=== PATIENT | male | born 1950 | race Caucasian/White ===

== ENCOUNTER 2021-09-24 16:40 | Emergency (ER) | payer OTHER ==
[~2021-09-24] VITALS: Ht 165.1 cm; Wt 78.9 kg
[2021-09-24 16:40] VITALS: BP_SYST 148
[~2021-09-24 16:40] MED LIST: DOCU-144 PO; INSNPH7030 SQ; LEVO750T45 PO; LIP40 PO; LISI10TA29 PO; METF1000 PO; MOM PO; POLY17PO4 PO
--- NOTE | 2021-09-24 16:45 | NUR ---
Patient to ER bed 06 to gown for evaluation. Side rails up.
--- NOTE | 2021-09-24 16:50 | NUR ---
Pt brought by self, A&Ox4 pt presents to ER for high blood pressure, pt states he went to [facility] [place] today for eye exam and BP was high, pt denies pain, skin pink and warm, cap refill <3, BP 144/80, will cont to monitor.
--- NOTE | 2021-09-24 17:00 | NUR ---
Dr Headley evaluating patient at bedside
[2021-09-24 17:14] LABS: BASOPHILS # (AUTO) 0.1 K/uL (0.0-0.2); BASOPHILS % (AUTO) 1.5 % (0.0-2.0); EOSINOPHILS # (AUTO) 0.2 K/uL (0.0-0.4); EOSINOPHILS % (AUTO) 4.1 % (0.0-4.0); HEMOGLOBIN 13.4 g/dL (14.0-18.0); MEAN CORPUSCULAR HEMOGLOBIN 30 pg (27-31); MEAN CORPUSCULAR HGB CONC 35 % (32-36); MEAN CORPUSCULAR VOLUME 84 fL (79.0-98.0); MONOCYTES # (AUTO) 0.4 K/uL (0.0-1.0); MONOCYTES % (AUTO) 7.8 % (1.7-9.3); NEUTROPHILS # (AUTO) 2.8 K/uL (1.8-7.7); NEUTROPHILS % (AUTO) 50.6 % (40.0-70.0); PLATELET COUNT (AUTO) 133 K/uL (130-430); RED BLOOD CELL COUNT(AUTO) 4.53 MIL/uL (4.2-6.2); RED CELL DISTRIBUTION WIDTH 14.2 % (9.0-15.0); WHITE BLOOD COUNT (AUTO) 5.5 K/uL (4.8-10.8)
[2021-09-24 17:33] LABS: CALCIUM 8.9 mg/dL (8.4-11.0); CREATININE 0.88 mg/dL (0.55-1.30); POTASSIUM 4.3 mmol/L (3.5-5.1)
--- NOTE | 2021-09-24 17:35 | NUR ---
Pt off the unit for CT
[2021-09-24] MEDS ORDERED: IOHEXOL 350 mgI/mL, 150 ML INFUS..BTL IV ONE (17:36)
--- NOTE | 2021-09-24 17:50 | NUR ---
Pt returned from CT on stable condition
--- NOTE | 2021-09-24 18:10 | NUR ---
Pt A&O x4, VSS, respirations even and unlabored
--- NOTE | 2021-09-24 19:10 | NUR ---
A&Ox4, follows commands, pt states he feels fine, VSS.
--- NOTE | 2021-09-24 20:23 | NUR ---
Patient given written and verbal discharge instructions and verbalizes understanding. ER MD Headley discussed with patient the results and treatment provided. Patient in stable condition. ID arm band removed. IV catheter removed intact and dressing applied, no active bleeding. Reviewed with pt to follow up with PMD. Pain Scale at time of discharge. Opportunity for questions provided and answered. Medication side effect fact sheet provided.
[2021-09-24 20:29] VITALS: BP_SYST 146
== END 2021-09-24 20:23 | disposition home or self-care (01) ==
LOC: SED 16:40
DX: H53.8 Other visual disturbances (principal); I10 Essential (primary) hypertension; E11.9 Type 2 diabetes mellitus without complications; Z79.4 Long term (current) use of insulin; Z79.899 Other long term (current) drug therapy
CPT/HCPCS: 36415; 70450; 70496; 70498; 76376; 80048; 85025; 85651; 86140; 93005; 99284; Q9967

== ENCOUNTER 2024-05-10 17:42 | Inpatient (IN) | payer OTHER ==
[~2024-05-10] VITALS: Ht 165.1 cm; Wt 80.7 kg
[~2024-05-10 17:42] MED LIST changes: -LEVO750T45 PO; +LEVO750T64 PO
[2024-05-10 17:52] VITALS: BP_SYST 156; PULSE 93; RESP 29; TEMP 98; O2SAT 96
[2024-05-10] MEDS: FUROSEMIDE 40 MG/4 ML VIAL IVP ONE (18:39)
[2024-05-10] MEDS: NITROGLYCERIN 1 INCH (GM) OINT. TP ONE (18:39)
[2024-05-10] MEDS: MORPHINE 4 MG INJ. 4 MG/ML VIAL IVP ONE (18:40)
[2024-05-10 18:53] LABS: BASOPHILS # (AUTO) 0.1 K/uL (0.0-0.2); BASOPHILS % (AUTO) 1.3 % (0.0-2.0); EOSINOPHILS # (AUTO) 0.3 K/uL (0.0-0.4); EOSINOPHILS % (AUTO) 3.8 % (0.0-4.0); HEMATOCRIT 22.2 % (36-54); HEMOGLOBIN 8.1 g/dL (14.0-18.0); LYMPHOCYTES % (AUTO) 23.7 % (20.5-51.5); MEAN CORPUSCULAR HEMOGLOBIN 30 pg (27-31); MEAN CORPUSCULAR HGB CONC 36 % (32-36); MEAN CORPUSCULAR VOLUME 84 fL (79.0-98.0); MONOCYTES # (AUTO) 0.8 K/uL (0.0-1.0); MONOCYTES % (AUTO) 9.5 % (1.7-9.3); NEUTROPHILS # (AUTO) 5.3 K/uL (1.8-7.7); NEUTROPHILS % (AUTO) 61.7 % (40.0-70.0); PLATELET COUNT (AUTO) 178 K/uL (130-430); RED BLOOD CELL COUNT(AUTO) 2.64 MIL/uL (4.2-6.2); WHITE BLOOD COUNT (AUTO) 8.6 K/uL (4.8-10.8)
[2024-05-10 19:08] LABS: ALANINE AMINOTRANSFERASE 16 U/L (12-78); ALBUMIN 2.5 g/dL (3.4-4.8); ANION GAP 9 (5-15); ASPARTATE AMINOTRANSFERASE 27 U/L (10-37); CARBON DIOXIDE 25 mmol/L (23-29); CREATININE 2.47 mg/dL (0.55-1.30); GLUCOSE 181 mg/dL (74-106); TOTAL BILIRUBIN 0.4 mg/dL (0.0-1.0); UREA NITROGEN, BLOOD 70 mg/dL (8-21)
[2024-05-10 19:38] LABS: BILIRUBIN,DIRECT 0.1 mg/dL (0.0-0.3); CHLORIDE 104 mmol/L (98-107); SODIUM SERUM 138 mmol/L (136-145)
[2024-05-10] MEDS ORDERED: INSU100V9 SQ (19:46)
[2024-05-10] MEDS ORDERED: TAMS-11 PO (19:46)
[2024-05-10] MEDS ORDERED: GABA-529 PO (19:46)
[2024-05-10] MEDS ORDERED: ROSU40TA PO (19:46)
[2024-05-10] MEDS ORDERED: LISI10TA29 PO (19:46)
[2024-05-10] MEDS: ENOXAPARIN SODIUM 80 MG/0.8 ML SYRINGE SUBCUT ONE (20:33)
[2024-05-10 22:59] VITALS: BP_SYST 169; PULSE 88; RESP 16; TEMP 98.4; O2SAT 99
[2024-05-11] VITALS (7 sets, daily range): BP systolic 150–166; PULSE 83–89; RESP 15–16; TEMP 97.5–98.1; O2SAT 95–100
[2024-05-11] MEDS: ONDANSETRON HCL 4 MG/2 ML VIAL IVP PRN (00:40)
[2024-05-11] MEDS: FUROSEMIDE 20 MG/2 ML VIAL IVP SCH (07:40)
[2024-05-11] MEDS ORDERED: cefTRIAXone 1 GM IVPB PREMIX 50 ML IV SCH (13:45)
[2024-05-11] MEDS: CEFTRIAXONE SOD 1 GM/ D5W 50 ML IV SCH (14:40)
[2024-05-12] VITALS (7 sets, daily range): BP systolic 145–159; PULSE 82–87; RESP 16–19; TEMP 97.8–98; O2SAT 95–100
[2024-05-12 07:55] LABS: BASOPHILS # (AUTO) 0.1 K/uL (0.0-0.2); BASOPHILS % (AUTO) 0.8 % (0.0-2.0); EOSINOPHILS # (AUTO) 0.4 K/uL (0.0-0.4); EOSINOPHILS % (AUTO) 5.3 % (0.0-4.0); HEMATOCRIT 23.3 % (36-54); HEMOGLOBIN 8.1 g/dL (14.0-18.0); LYMPHOCYTES # (AUTO) 1.6 K/uL (1.0-5.5); LYMPHOCYTES % (AUTO) 19.5 % (20.5-51.5); MEAN CORPUSCULAR HEMOGLOBIN 29 pg (27-31); MEAN CORPUSCULAR HGB CONC 35 % (32-36); MEAN CORPUSCULAR VOLUME 84 fL (79.0-98.0); MONOCYTES # (AUTO) 0.8 K/uL (0.0-1.0); NEUTROPHILS # (AUTO) 5.3 K/uL (1.8-7.7); NEUTROPHILS % (AUTO) 64.4 % (40.0-70.0); PLATELET COUNT (AUTO) 220 K/uL (130-430); RED BLOOD CELL COUNT(AUTO) 2.77 MIL/uL (4.2-6.2); RED CELL DISTRIBUTION WIDTH 14.8 % (9.0-15.0); WHITE BLOOD COUNT (AUTO) 8.2 K/uL (4.8-10.8)
[2024-05-12 08:21] LABS: ANION GAP 11 (5-15); CALCIUM 8.6 mg/dL (8.4-11.0); CARBON DIOXIDE 26 mmol/L (23-29); CHLORIDE 100 mmol/L (98-107); CREATININE 2.57 mg/dL (0.55-1.30); GLUCOSE 180 mg/dL (74-106); POTASSIUM 4.6 mmol/L (3.5-5.1); SODIUM SERUM 137 mmol/L (136-145); UREA NITROGEN, BLOOD 75 mg/dL (8-21)
[2024-05-12] MEDS: AZITHROMYCIN 500 MG in NS 250 ML IV SCH (11:06)
[2024-05-12] MEDS: TAMSULOSIN HCL 0.4 MG CAP PO SCH (17:41)
[2024-05-12] MEDS: ATORVASTATIN 20 MG TABLET PO SCH (17:43)
[2024-05-12] MEDS: GABAPENTIN 100 MG CAPSULE PO PRN (17:44)
[2024-05-12] MEDS: LISINOPRIL 10 MG TABLET (PRINIVIL) PO SCH (17:45)
[2024-05-12] MEDS: INSULIN GLARGINE 100 UNITS/ML, 10 ML VIAL SQ SCH (20:57)
[2024-05-12] MEDS: FUROSEMIDE 20 MG/2 ML VIAL IVP SCH (21:00)
[2024-05-12 23:41] LABS: BILIRUBIN,URINE NEGATIVE (NEGATIVE); CLARITY/URINE CLEAR (CLEAR); COLOR,URINE YELLOW (YELLOW); GLUCOSE,URINE TRACE (NEGATIVE); KETONES,URINE NEGATIVE (NEGATIVE); LEUKOCYTE ESTERASE ,URINE NEGATIVE (NEGATIVE); NITRITE, URINE NEGATIVE (NEGATIVE); PROTEIN URINE 2+ (NEGATIVE); UROBILINOGEN,URINE 0.2 (0.2-1.0)
[2024-05-12 23:52] LABS: BLOOD, URINE TRACE (NEGATIVE)
[2024-05-13] VITALS: BP_SYST 151; PULSE 91; RESP 20; TEMP 98.1; O2SAT 100
[2024-05-13 00:16] LABS: BACTERIA,URINE RARE /HPF (None Seen)
[2024-05-13 07:27] LABS: BASOPHILS # (AUTO) 0.1 K/uL (0.0-0.2); BASOPHILS % (AUTO) 0.9 % (0.0-2.0); EOSINOPHILS # (AUTO) 0.5 K/uL (0.0-0.4); EOSINOPHILS % (AUTO) 6.5 % (0.0-4.0); HEMATOCRIT 25.4 % (36-54); HEMOGLOBIN 8.7 g/dL (14.0-18.0); LYMPHOCYTES # (AUTO) 2.2 K/uL (1.0-5.5); LYMPHOCYTES % (AUTO) 27.5 % (20.5-51.5); MEAN CORPUSCULAR HEMOGLOBIN 29 pg (27-31); MEAN CORPUSCULAR HGB CONC 34 % (32-36); MEAN CORPUSCULAR VOLUME 84 fL (79.0-98.0); MONOCYTES # (AUTO) 0.7 K/uL (0.0-1.0); MONOCYTES % (AUTO) 9.1 % (1.7-9.3); NEUTROPHILS # (AUTO) 4.5 K/uL (1.8-7.7); PLATELET COUNT (AUTO) 233 K/uL (130-430); RED BLOOD CELL COUNT(AUTO) 3.02 MIL/uL (4.2-6.2); RED CELL DISTRIBUTION WIDTH 15.1 % (9.0-15.0); WHITE BLOOD COUNT (AUTO) 8.1 K/uL (4.8-10.8)
[2024-05-13 07:34] LABS: ERYTHROCYTE SEDIMENTATION RATE 41 MM/HR (0-15)
[2024-05-13 07:41] VITALS: BP_SYST 132; PULSE 89; RESP 18; TEMP 97.5; O2SAT 96
[2024-05-13 07:46] LABS: ANION GAP 12 (5-15); CALCIUM 8.6 mg/dL (8.4-11.0); CARBON DIOXIDE 25 mmol/L (23-29); CHLORIDE 100 mmol/L (98-107); GLUCOSE 140 mg/dL (74-106); POTASSIUM 4.1 mmol/L (3.5-5.1); SODIUM SERUM 137 mmol/L (136-145); UREA NITROGEN, BLOOD 73 mg/dL (8-21)
[2024-05-13 09:30] VITALS: O2SAT 97
[2024-05-13 12:02] VITALS: BP_SYST 128; PULSE 82; RESP 18; TEMP 97.3; O2SAT 100
[2024-05-13 16:12] VITALS: BP_SYST 117; PULSE 81; RESP 18; TEMP 98; O2SAT 100
[2024-05-13 19:43] LABS: BILIRUBIN,URINE NEGATIVE (NEGATIVE); CLARITY/URINE CLEAR (CLEAR); COLOR,URINE YELLOW (YELLOW); GLUCOSE,URINE TRACE (NEGATIVE); KETONES,URINE NEGATIVE (NEGATIVE); LEUKOCYTE ESTERASE ,URINE NEGATIVE (NEGATIVE); NITRITE, URINE NEGATIVE (NEGATIVE); PH,URINE 5.5 (5.0-8.0); PROTEIN URINE 2+ (NEGATIVE); UROBILINOGEN,URINE 0.2 (0.2-1.0)
[2024-05-13 19:56] LABS: BLOOD, URINE TRACE (NEGATIVE)
[2024-05-13 19:57] LABS: BACTERIA,URINE FEW /HPF (None Seen); COARSE GRANULAR CASTS,URINE 0-10 /LPF (None Seen); FINE GRANULAR CASTS,URINE 0-10 /LPF (None Seen); MUCUS,URINE 1+ /LPF (None Seen); RBC,URINE 0-3 /HPF (0-3); WBC,URINE 0-3 /HPF (0-3)
[2024-05-13 20:00] VITALS: BP_SYST 136; PULSE 91; RESP 18; TEMP 97.6; O2SAT 100
[2024-05-14] VITALS (7 sets, daily range): BP systolic 93–136; PULSE 80–93; RESP 14–16; TEMP 97.5–98.5; O2SAT 96–100
[2024-05-14 07:45] LABS: BASOPHILS # (AUTO) 0.1 K/uL (0.0-0.2); BASOPHILS % (AUTO) 0.9 % (0.0-2.0); EOSINOPHILS # (AUTO) 0.5 K/uL (0.0-0.4); EOSINOPHILS % (AUTO) 5.4 % (0.0-4.0); HEMATOCRIT 24.3 % (36-54); HEMOGLOBIN 8.5 g/dL (14.0-18.0); LYMPHOCYTES # (AUTO) 2.2 K/uL (1.0-5.5); LYMPHOCYTES % (AUTO) 26.4 % (20.5-51.5); MEAN CORPUSCULAR HEMOGLOBIN 29 pg (27-31); MEAN CORPUSCULAR HGB CONC 35 % (32-36); MEAN CORPUSCULAR VOLUME 82 fL (79.0-98.0); MONOCYTES # (AUTO) 0.9 K/uL (0.0-1.0); MONOCYTES % (AUTO) 10.4 % (1.7-9.3); NEUTROPHILS # (AUTO) 4.8 K/uL (1.8-7.7); NEUTROPHILS % (AUTO) 56.9 % (40.0-70.0); PLATELET COUNT (AUTO) 230 K/uL (130-430); RED BLOOD CELL COUNT(AUTO) 2.96 MIL/uL (4.2-6.2); RED CELL DISTRIBUTION WIDTH 14.6 % (9.0-15.0); WHITE BLOOD COUNT (AUTO) 8.5 K/uL (4.8-10.8)
[2024-05-14 07:51] LABS: ERYTHROCYTE SEDIMENTATION RATE 38 MM/HR (0-15)
[2024-05-14 08:30] LABS: ALANINE AMINOTRANSFERASE 15 U/L (12-78); ALBUMIN 2.5 g/dL (3.4-4.8); ANION GAP 12 (5-15); ASPARTATE AMINOTRANSFERASE 18 U/L (10-37); CALCIUM 8.5 mg/dL (8.4-11.0); CARBON DIOXIDE 26 mmol/L (23-29); CHLORIDE 99 mmol/L (98-107); CREATININE 2.92 mg/dL (0.55-1.30); GLUCOSE 96 mg/dL (74-106); PHOSPHORUS 5.5 mg/dL (2.7-4.5); POTASSIUM 4.1 mmol/L (3.5-5.1); SODIUM SERUM 137 mmol/L (136-145); TOTAL BILIRUBIN 0.4 mg/dL (0.0-1.0); TOTAL PROTEIN, SERUM 7.1 g/dL (6.4-8.3); UREA NITROGEN, BLOOD 87 mg/dL (8-21)
[2024-05-14] MEDS: MILK OF MAGNESIA 30 ML UDC PO PRN (13:57)
[2024-05-15 00:10] VITALS: BP_SYST 102; PULSE 89; RESP 17; TEMP 98.7; O2SAT 99
[2024-05-15 08:05] VITALS: BP_SYST 126; PULSE 88; RESP 18; TEMP 97.5; O2SAT 95
[2024-05-15 08:22] LABS: BASOPHILS # (AUTO) 0.1 K/uL (0.0-0.2); BASOPHILS % (AUTO) 0.9 % (0.0-2.0); EOSINOPHILS # (AUTO) 0.4 K/uL (0.0-0.4); EOSINOPHILS % (AUTO) 5.5 % (0.0-4.0); HEMATOCRIT 23.4 % (36-54); HEMOGLOBIN 8.1 g/dL (14.0-18.0); LYMPHOCYTES # (AUTO) 1.8 K/uL (1.0-5.5); LYMPHOCYTES % (AUTO) 25.3 % (20.5-51.5); MEAN CORPUSCULAR HEMOGLOBIN 29 pg (27-31); MEAN CORPUSCULAR HGB CONC 35 % (32-36); MEAN CORPUSCULAR VOLUME 83 fL (79.0-98.0); MONOCYTES # (AUTO) 0.7 K/uL (0.0-1.0); MONOCYTES % (AUTO) 10.3 % (1.7-9.3); NEUTROPHILS # (AUTO) 4.1 K/uL (1.8-7.7); PLATELET COUNT (AUTO) 243 K/uL (130-430); RED BLOOD CELL COUNT(AUTO) 2.83 MIL/uL (4.2-6.2); RED CELL DISTRIBUTION WIDTH 14.5 % (9.0-15.0)
[2024-05-15 08:50] LABS: ANION GAP 7 (5-15); CALCIUM 8.6 mg/dL (8.4-11.0); CARBON DIOXIDE 28 mmol/L (23-29); CHLORIDE 102 mmol/L (98-107); CREATININE 3.07 mg/dL (0.55-1.30); GLUCOSE 89 mg/dL (74-106); POTASSIUM 3.8 mmol/L (3.5-5.1); SODIUM SERUM 137 mmol/L (136-145); UREA NITROGEN, BLOOD 81 mg/dL (8-21)
[2024-05-15] MEDS ORDERED: FURO-149 PO (10:00)
[2024-05-15] MEDS ORDERED: METO2.5T6 PO (10:00)
[2024-05-15] MEDS: metOLazone 5 MG TABLET PO SCH (10:12)
[2024-05-15] MEDS: FUROSEMIDE 20 MG/2 ML VIAL IVP SCH (10:12)
[2024-05-15 12:35] VITALS: BP_SYST 124; PULSE 75; RESP 14; TEMP 98; O2SAT 98
[2024-05-15 13:10] VITALS: BP_SYST 124; PULSE 75; RESP 14; TEMP 98; O2SAT 98
== END 2024-05-15 14:20 | disposition home or self-care (01) | DRG 871 ==
LOC: SED 17:42 → STU 20:09
PROVIDERS: ADMIT Specialist; ATTEND Specialist
DX: A41.9 Sepsis, unspecified organism (principal); I21.4 Non-ST elevation (NSTEMI) myocardial infarction; I50.33 Acute on chronic diastolic (congestive) heart failure; J18.9 Pneumonia, unspecified organism; J96.01 Acute respiratory failure with hypoxia; J69.0 Pneumonitis due to inhalation of food and vomit; I13.0 Hypertensive heart and chronic kidney disease with heart failure and stage 1 through stage 4 chronic kidney disease, or unspecified chronic kidney disease; N17.9 Acute kidney failure, unspecified; I42.9 Cardiomyopathy, unspecified; D64.9 Anemia, unspecified; G89.29 Other chronic pain; E83.39 Other disorders of phosphorus metabolism; E66.9 Obesity, unspecified; E11.65 Type 2 diabetes mellitus with hyperglycemia; E11.40 Type 2 diabetes mellitus with diabetic neuropathy, unspecified; N40.0 Benign prostatic hyperplasia without lower urinary tract symptoms; E11.22 Type 2 diabetes mellitus with diabetic chronic kidney disease; N18.32 Chronic kidney disease, stage 3b; I08.0 Rheumatic disorders of both mitral and aortic valves; Z79.899 Other long term (current) drug therapy; Z79.4 Long term (current) use of insulin; Z68.29 Body mass index [BMI] 29.0-29.9, adult
CPT/HCPCS: 36415; 71045; 76770; 80048; 80053; 80076; 81000; 81001; 81015; 82435; 82570; 82948; 83735; 83880; 84100; 84302; 84484; 84540; 85025; 85651; 87040; 87070; 87205; 93005; 93306; 99291; G0378; J0456; J0696; J1650; J1815; J1940; J2270; J2405; J7050; J7060

== ENCOUNTER 2024-06-06 17:33 | Inpatient (IN) | payer OTHER ==
[~2024-06-06] VITALS: Ht 165.1 cm; Wt 74.8 kg
[~2024-06-06 17:33] MED LIST changes: -DOCU-144 PO; +FURO-149 PO; +GABA-529 PO; -INSNPH7030 SQ; +INSU100V9 SQ; -LEVO750T64 PO; -LIP40 PO; -METF1000 PO; +METO2.5T6 PO; -MOM PO; -POLY17PO4 PO; +ROSU40TA PO; +TAMS-11 PO
[2024-06-06 17:38] VITALS: BP_SYST 122; PULSE 82; RESP 16; TEMP 97.6; O2SAT 99
[2024-06-06 18:14] LABS: BASOPHILS # (AUTO) 0.1 K/uL (0.0-0.2); BASOPHILS % (AUTO) 0.7 % (0.0-2.0); EOSINOPHILS # (AUTO) 0.5 K/uL (0.0-0.4); EOSINOPHILS % (AUTO) 5.8 % (0.0-4.0); HEMATOCRIT 22.3 % (36-54); HEMOGLOBIN 8.2 g/dL (14.0-18.0); LYMPHOCYTES # (AUTO) 2.2 K/uL (1.0-5.5); LYMPHOCYTES % (AUTO) 28.5 % (20.5-51.5); MEAN CORPUSCULAR HEMOGLOBIN 30 pg (27-31); MEAN CORPUSCULAR HGB CONC 37 % (32-36); MEAN CORPUSCULAR VOLUME 82 fL (79.0-98.0); MONOCYTES # (AUTO) 0.8 K/uL (0.0-1.0); MONOCYTES % (AUTO) 10.2 % (1.7-9.3); NEUTROPHILS # (AUTO) 4.3 K/uL (1.8-7.7); NEUTROPHILS % (AUTO) 54.8 % (40.0-70.0); PLATELET COUNT (AUTO) 146 K/uL (130-430); RED BLOOD CELL COUNT(AUTO) 2.73 MIL/uL (4.2-6.2); RED CELL DISTRIBUTION WIDTH 15.7 % (9.0-15.0); WHITE BLOOD COUNT (AUTO) 7.8 K/uL (4.8-10.8)
[2024-06-06 19:24] LABS: ALANINE AMINOTRANSFERASE 19 U/L (12-78); ALBUMIN 3.3 g/dL (3.4-4.8); ANION GAP 10 (5-15); ASPARTATE AMINOTRANSFERASE 17 U/L (10-37); CALCIUM 9.3 mg/dL (8.4-11.0); CARBON DIOXIDE 28 mmol/L (23-29); CHLORIDE 101 mmol/L (98-107); GLUCOSE 161 mg/dL (74-106); SODIUM SERUM 139 mmol/L (136-145); TOTAL BILIRUBIN 0.4 mg/dL (0.0-1.0)
[2024-06-06] MEDS ORDERED: FURO40TA5 PO (19:30)
[2024-06-06] MEDS ORDERED: FINE20TA PO (19:30)
[2024-06-06] MEDS ORDERED: METO2.5T2 PO (19:30)
[2024-06-06] MEDS ORDERED: INSU100V9 SQ (19:30)
[2024-06-06] MEDS ORDERED: EMPA10TA PO (19:30)
[2024-06-06] MEDS ORDERED: FERR-69 PO (19:30)
[2024-06-06] MEDS ORDERED: TAMS0.4C96 PO (19:30)
[2024-06-06] MEDS ORDERED: LISI20TA30 PO (19:30)
[2024-06-06 19:38] LABS: POTASSIUM 5.9 mmol/L (3.5-5.1); UREA NITROGEN, BLOOD 136 mg/dL (8-21)
[2024-06-06] MEDS ORDERED: CALCIUM CHLORIDE 1 GM/10 ML DISP.SYRIN (14 mEq Ca++/SYR) ONE (20:10)
[2024-06-06] MEDS: CALCIUM CHLORIDE 1 GM in NS 100 ML IV ONE (20:13)
[2024-06-06] MEDS: DEXTROSE 50% JECT 50 ML DISP.SYRIN IVP ONE (20:39)
[2024-06-06] MEDS: INSULIN REGULAR, HUMAN 10 UNITS/0.1 ML, 3 ML VIAL IVP ONE (20:45)
[2024-06-06 20:49] LABS: COVID19 ANTIGEN SOFIA FIA NEGATIVE (NEGATIVE)
[2024-06-06 20:53] LABS: INFLUENZA TYPE A Negative (NEGATIVE); INFLUENZA TYPE B NEGATIVE (NEGATIVE)
[2024-06-06] MEDS: ALBUTEROL SULFATE 0.083% 2.5 MG/3 ML VIAL.NEB INH ONE (21:01)
[2024-06-06 21:54] VITALS: BP_SYST 125; PULSE 110; RESP 18; TEMP 97.9; O2SAT 99
[2024-06-06] MEDS: 0.45% NS 1,000 ML IV SCH (21:55)
[2024-06-06] MEDS: SODIUM POLYSTYRENE SULFONATE 15 GM/60 ML UDBTL PO ONE (22:10)
[2024-06-07] VITALS: BP_SYST 119; PULSE 87; RESP 18; TEMP 98; O2SAT 99
[2024-06-07 00:52] LABS: BILIRUBIN,URINE NEGATIVE (NEGATIVE); CLARITY/URINE CLEAR (CLEAR); COLOR,URINE YELLOW (YELLOW); GLUCOSE,URINE 3+ (NEGATIVE); KETONES,URINE NEGATIVE (NEGATIVE); LEUKOCYTE ESTERASE ,URINE NEGATIVE (NEGATIVE); NITRITE, URINE NEGATIVE (NEGATIVE); PROTEIN URINE 2+ (NEGATIVE); UROBILINOGEN,URINE 0.2 (0.2-1.0)
[2024-06-07 01:21] LABS: ANION GAP 14 (5-15); CALCIUM 9.5 mg/dL (8.4-11.0); CARBON DIOXIDE 24 mmol/L (23-29); CHLORIDE 101 mmol/L (98-107); CREATININE 4.74 mg/dL (0.55-1.30); GLUCOSE 264 mg/dL (74-106); POTASSIUM 4.3 mmol/L (3.5-5.1); SODIUM SERUM 139 mmol/L (136-145)
[2024-06-07 01:36] LABS: UREA NITROGEN, BLOOD 136 mg/dL (8-21)
[2024-06-07 02:07] LABS: BLOOD, URINE NEGATIVE (NEGATIVE)
[2024-06-07 08:22] VITALS: BP_SYST 144; PULSE 83; RESP 18; TEMP 97.2; O2SAT 98
[2024-06-07 08:23] VITALS: O2SAT 98
[2024-06-07 17:22] VITALS: BP_SYST 138; PULSE 82; RESP 18; TEMP 98; O2SAT 96
[2024-06-07] MEDS: amLODIPine BESYLATE 5 MG TABLET PO ONE (18:57)
[2024-06-07 20:00] VITALS: BP_SYST 143; PULSE 82; RESP 18; TEMP 98; O2SAT 100
[2024-06-08] MEDS ORDERED: amLODIPine BESYLATE 5 MG TABLET PO SCH (09:00)
== END 2024-06-08 23:00 | disposition home or self-care (01) | DRG 438 ==
LOC: SED 17:33 → STU 20:24
PROVIDERS: ADMIT Specialist; ATTEND Specialist
DX: K85.90 Acute pancreatitis without necrosis or infection, unspecified (principal); I21.A1 Myocardial infarction type 2; N17.9 Acute kidney failure, unspecified; I13.0 Hypertensive heart and chronic kidney disease with heart failure and stage 1 through stage 4 chronic kidney disease, or unspecified chronic kidney disease; N18.4 Chronic kidney disease, stage 4 (severe); Z20.822 Contact with and (suspected) exposure to COVID-19; R65.10 Systemic inflammatory response syndrome (SIRS) of non-infectious origin without acute organ dysfunction; E87.5 Hyperkalemia; D64.9 Anemia, unspecified; N18.9 Chronic kidney disease, unspecified; I50.9 Heart failure, unspecified; E11.22 Type 2 diabetes mellitus with diabetic chronic kidney disease; E78.5 Hyperlipidemia, unspecified; D63.1 Anemia in chronic kidney disease; I25.10 Atherosclerotic heart disease of native coronary artery without angina pectoris; N40.0 Benign prostatic hyperplasia without lower urinary tract symptoms; Z79.4 Long term (current) use of insulin; Z79.899 Other long term (current) drug therapy; Z88.5 Allergy status to narcotic agent
CPT/HCPCS: 36415; 70450-TC; 71045; 76705; 76770; 78226; 80048; 80053; 81001; 81003; 83605; 83690; 84484; 85025; 87040; 93005; 94640; 94664; 99291; A9537; G0378; J1815